=== PATIENT | female | born 1960 | race Caucasian/White ===

== ENCOUNTER 2021-10-04 20:00 | Outpatient (CLI) | payer BC, SELFPAY | END 2021-10-04 20:01 | disposition home or self-care (01) | LOC: SLEEP 10-05 16:03 | PROVIDERS: Family Provider Internal Medicine; Visit Provider Family Medicine | DX: G47.10 Hypersomnia, unspecified (principal) | CPT/HCPCS: G0399 ==

== ENCOUNTER 2022-03-08 10:58 | Outpatient (CLI) | payer BC, SELFPAY ==
[2022-03-08 11:05] VITALS: BMI 35.6
--- NOTE | 2022-03-08 11:24 | NMCV_ITS ---
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 Images obtained in supine and prone position. SPECT RESULTS Technical Quality: Excellent Raw Data Analysis: Normal Image Corrections: No attenuation or motion correction applied Summed Stress Score: 2 Summed Rest Score: 0 Summed Difference Score: 2 PERFUSION FINDINGS Small area of slightly decreased tracer uptake was noted in the basal and mid inferior wall region. Complete reversibility was noted at rest. FUNCTIONAL RESULTS (calculated via Gated SPECT) Stress Image LV EF (%): 80 Stress EDV (mL):88 TID: 1.02 Stress ESV (mL):18 FUNCTIONAL FINDINGS: Segmental wall motion analysis revealing no gross wall motion abnormalities IMPRESSIONS 1. Myocardial perfusion imaging revealing small area of reversible defect in the inferior wall region, suggesting ischemia in the distribution of the right coronary artery. 2. Normal LV ejection fraction of 80%. 3. Segmental wall motion analysis revealing no gross wall motion abnormalities. 4. Normal LV volume No similar previous studies are available for comparison Dr Nathan Gómez MD [facility] (Electronically Signed) Final Date: 08 March 2022 16:25 S
--- NOTE | 2022-03-08 11:24 | ECG_ITS ---
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 Interpretive Statements NAME OF STUDY: LEXISCAN SESTAMIBI STRESS TEST INDICATION: Dyspnea on Exertion, PROCEDURE: At the baseline, the EKG revealed sinus bradycardia with a rate of 57 bpm. Poor R wave progression. Some nonspecific ST changes in the high lateral leads. The baseline heart was 57 bpm with a blood pressue of 120/78 mm of Hg Lexiscan was infused over a period of 20 seconds. A total of 0.4 milligrams of Lexiscan was infused. The stress phase was continued for a total of 5 minutes. Heart rate at the end of the stress phase was 81 bpm with a blood pressure 149/84 mm of Hg. The EKG at the peak infusion revealed no significant changes. Sestamibi was injected 20 seconds after the Lexiscan infusion. Heart rate at the end of the recovery phase was 77 bpm with a blood pressure of 151/82 mm of Hg. CONCLUSION: 1. No significant EKG changes with the LexiScan infusion 2. No LexiScan induced chest pain or cardiac arrhythmia 3. Normal blood pressure and heart rate response 4. Sestamibi/sestamibi perfusion scan pending; see separate report. Electronically Signed On 03-08-2022 17:50:31 CDT by Nathan Gómez M.D. [id number]
[2022-03-08] MEDS: regadenoson 0.4 Mg/5 ml Syringe IVP (12:45)
[2022-03-08] MEDS: aminophylline 25 mg/mL SDV 10 mL IVP (13:05)
[2022-03-08 13:09] VITALS: BP 139/60; PULSE 61
== END 2022-03-08 10:59 | disposition home or self-care (01) ==
PROVIDERS: PCP Family Medicine; Visit Provider Family Medicine
DX: R07.89 Other chest pain (principal); R06.09 Other forms of dyspnea
CPT/HCPCS: 78452; 93017; A9500; J0280; J2785

== ENCOUNTER 2022-10-24 15:22 | Outpatient (RCR) | payer BC, SELFPAY | END 2022-11-05 23:59 | disposition home or self-care (01) | LOC: CR 15:22 | PROVIDERS: PCP Family Medicine; Referring Provider Internal Medicine; Visit Provider Internal Medicine | DX: Z95.5 Presence of coronary angioplasty implant and graft (principal) | CPT/HCPCS: 93798 ==

== ENCOUNTER 2023-06-30 10:32 | Emergency (ER) | payer BC, SELFPAY ==
[2023-06-30 10:43] VITALS: BP 146/85; PULSE 60; RESP 18; TEMP 36.6; O2SAT 98
[2023-06-30 10:48] VITALS: BP 146/85; PULSE 57; RESP 18; O2SAT 98
--- NOTE | 2023-06-30 10:49 | XRR_ITS ---
PROCEDURE INFORMATION: Exam: XR Chest Exam date and time: 06/30/2023 10:54 AM Age: 63 years old Clinical indication: Angina; Prior surgery; Surgery date: 6+ months; Surgery type: Stent; Additional info: Chest pain TECHNIQUE: Imaging protocol: Radiologic exam of the chest. Views: 1 view. COMPARISON: CR XR chest 2V* [id number] 02/15/2022 12:42 PM FINDINGS: Lungs: No consolidation. Pleural spaces: No pleural effusion. No pneumothorax. Heart/Mediastinum: No cardiomegaly. Bones/joints: No acute findings. XR/XR chest 1V portable [id number] IMPRESSION: No acute findings.
--- NOTE | 2023-06-30 10:49 | ECG_ITS ---
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 Measurements Intervals [place] Rate: 62 P: 18 AK: 189 QRS: -22 QRSD: 96 T: 18 QT: 442 QTc: 451 Interpretive Statements SINUS RHYTHM POSSIBLE ANTERIOR MYOCARDIAL INFARCTION , OF INDETERMINATE AGE [30 ms Q WAVE IN V3/V4, OR R < 0.2 mV IN V4] No previous ECG available for comparison Electronically Signed On 06-30-2023 10:59:31 SALESPERSON HOUSEHOLD APPLIANCES by Chris Fleming M.D. [email or web address]/store/[id number]
[2023-06-30 10:55] LABS: Basophils # 0.1 10^3/uL (0.0-0.1); Basophils % 1.4 %; Eosinophils # 0.4 10^3/uL (0.0-0.8); Hematocrit 38.2 % (36-47); Lymphocytes # 2.1 10^3/uL (0.8-4.8); Lymphocytes % 23.7 %; Mean Corpuscular Hemoglobin 27.4 pg (27-33); Mean Platelet Volume 8.7 fL (7.4-10.4); Monocytes # 0.5 10^3/uL (0.2-0.9); Neutrophils # 5.71 10^3/uL (1.8-7.7); Neutrophils % 64.6 %; Nucleated Red Blood Cells % 0 %; Platelet Count 398 10^3/cmm (157-399); Red Cell Distribution Width 14.6 % (12.1-15.1); White Blood Count 8.83 10^3/uL (3.29-11.43)
[2023-06-30 11:20] LABS: Alanine Aminotransferase 41 U/L (0-33); Albumin Level 4.8 g/dL (3.5-5.2); Alkaline Phosphatase 118 U/L (35-105); Anion Gap 12.3 (5-19); Aspartate Amino Transferase 24 U/L (0-32); Blood Urea Nitrogen 10 mg/dL (8-23); Calcium 10.1 mg/dL (8.5-10.5); Carbon Dioxide 29 mmol/L (22-29); Chloride 101 mmol/L (98-107); Globulin 2.4 g/dL (1.3-4.6); Glomerular Filtration Rate 72.4 mL/min (90-130); Glucose 100 mg/dL (65-115); Osmolality Calculated 285 mOsm/kg (285-295); Potassium 4.3 mmol/L (3.5-5.1); Sodium 138 mmol/L (136-145); Total Bilirubin 1.4 mg/dL (0.15-1.2); Total Protein 7.2 g/dL (6.6-8.7)
[2023-06-30 11:21] LABS: Troponin(5th) Baseline 15 ng/L (0-10)
--- NOTE | 2023-06-30 11:50 | W.ED.CHESTPA ---
HPI - Chest Pain General: Chief Complaint: Chest Pain Stated Complaint: chest pain Time Seen by Provider: 06/30/23 10:49 History of Present Illness: Patient presents to the ER with complaints of substernal chest pain with shortness of breath. Patient denies any radiation, nausea vomiting, diaphoresis. This happened throughout the middle the night. Patient took 2 nitro and the pain went away. Patient's blood pressure at home was 168/92. Patient does have a history of a stent approximately 1 year ago. Patient is in no acute distress at this time and, is pain-free, and is nontoxic in appearance. Review of Systems General: Reports: 10 or more systems reviewed and unremarkable except in HPI and below Physical Exam Const: COMMON NORMALS: no acute distress, average body habitus, patient oriented x3, no limitations, healthy appearing, alert and well nourished HENMT: COMMON NORMALS: normocephalic, atraumatic, hearing grossly normal bilaterally, external ears normal, Normal external nose present, moist oral mucous membranes and oropharynx normal HEAD & SCALP: normocephalic and atraumatic NOSE: Normal external nose present EXTERNAL EAR: Yes external ears normal Eye: COMMON NORMALS: Equal, round and reactive pupils present, EOMs intact bilaterally, conjunctivae normal and no scleral icterus CONJUNCTIVA: Yes conjunctivae normal PUPIL: Yes Equal, round and reactive pupils present Neck/C-Spine: COMMON NORMALS: full ROM, no lymphadenopathy, supple, no meningeal signs, no JVD and Thyroid normal THYROID: Thyroid normal Chest: COMMONS NORMALS: normal inspection of the chest and normal palpation of entire chest wall Resp: COMMON NORMALS: normal respiratory effort, No retractions, No use of accessory muscles and clear to auscultation bilaterally AUSCULTATION: clear to auscultation bilaterally Cardio: COMMON NORMALS: no JVD, regular rate, regular rhythm, S1 normal heart sound present, S2 normal heart sound present, No gallops present (Cardio), No clicks present (Cardio), No murmurs present (Cardio) and No rub (Cardio) RATE: regular rate RHYTHM: regular rhythm HEART SOUNDS: S1 normal heart sound present and S2 normal heart sound present GI: COMMON NORMALS: Normal to inspection, nondistended, normoactive bowel sounds present, Soft to palpation, non-tender, No hepatosplenomegaly present and no masses PALPATION: Yes Soft to palpation and Yes No hepatosplenomegaly present Neuro: COMMON NORMALS: patient oriented x3 SENSORIUM/ORIENTATION: Yes alert MENINGEAL SIGNS: Yes no meningeal signs Course Vital Signs: Vital signs: Vital Signs Temperature 98 F 06/30/23 10:43 Pulse Rate 59 L 06/30/23 12:00 Respiratory Rate 18 06/30/23 10:48 Blood Pressure 171/100 06/30/23 12:57 Pulse Oximetry 95 06/30/23 12:00 Oxygen Delivery Me thod Room Air 06/30/23 12:00 MDM - Chest Pain Medical Decision Making Patient presents to the ER with complaints of chest pain that has resolved by the time she came to the ER. Patient does have a history of having 1 stent in the past patient is currently on Plavix. Patient was worked up in a standard chest pain fashion with serial EKGs serial lab work and chest x-ray. All of which were essentially unremarkable. Is thought this is noncardiac chest pain patient will be discharged home to follow-up with her PCP in the next 7 days for further evaluation and treatment. Differential Diagnosis Unlikely acute massive pulmonary embolism, acute respiratory failure, acute myocardial infarction, cardiac arrest or sudden cardiac Medical Records I reviewed the patient's medical records. Lab Data I reviewed the patient's lab results. 06/30/23 10:48 06/30/23 10:48 Radiology Impressions Chest X-Ray 06/30/23 10:49 IMPRESSION: No acute findings. Laboratory Results WBC 8.83 10^3/uL (3.29-11.43) 06/30/23 10:48 RBC 4.60 10^6/uL (3.85-5.65) 06/30/23 10:48 Hgb 12.60 g/dL (11.27-16.99) 06/30/23 10:48 Hct 38.2 % (36-47) 06/30/23 10:48 MCV 83.0 fl (85-98) L 06/30/23 10:48 MCH 27.4 pg (27-33) 06/30/23 10:48 MCHC 33.0 g/dL (30-55) 06/30/23 10:48 RDW 14.6 % (12.1-15.1) 06/30/23 10:48 Plt Count 398 10^3/cmm (157-399) 06/30/23 10:48 MPV 8.7 fL (7.4-10.4) 06/30/23 10:48 Neut % (Auto) 64.6 % 06/30/23 10:48 Lymph % (Auto) 23.7 % 06/30/23 10:48 [place] % (Auto) 6.0 % 06/30/23 10:48 Eos % (Auto) 4.0 % 06/30/23 10:48 Baso % (Auto) 1.4 % 06/30/23 10:48 Neut # (Auto) 5.71 10^3/uL (1.8-7.7) 06/30/23 10:48 Lymph # (Auto) 2.1 10^3/uL (0.8-4.8) 06/30/23 10:48 [place] # (Auto) 0.5 10^3/uL (0.2-0.9) 06/30/23 10:48 Eos # (Auto) 0.4 10^3/uL (0.0-0.8) 06/30/23 10:48 Baso # (Auto) 0.1 10^3/uL (0.0-0.1) 06/30/23 10:48 Nucleated RBC % (auto) 0 % 06/30/23 10:48 Nucleated RBCs # 0.0 /100WBC 06/30/23 10:48 Sodium 138 mmol/L (136-145) 06/30/23 10:48 Potassium 4.3 mmol/L (3.5-5.1) 06/30/23 10:48 Chloride 101 mmol/L (98-107) 06/30/23 10:48 Carbon Dioxide 29 mmol/L (22-29) 06/30/23 10:48 Anion Gap 12.3 (5-19) 06/30/23 10:48 BUN 10 mg/dL (8-23) 06/30/23 10:48 Creatinine 0.8 mg/dL (0.5-0.9) 06/30/23 10:48 GFR Calculation 72.4 mL/min (90-130) L 06/30/23 10:48 Glucose 100 mg/dL (65-115) 06/30/23 10:48 Calculated Osmolality 285 mOsm/kg (285-295) 06/30/23 10:48 Calcium 10.1 mg/dL (8.5-10.5) 06/30/23 10:48 Total Bilirubin 1.4 mg/dL (0.15-1.2) H 06/30/23 10:48 AST 24 U/L (0-32) 06/30/23 10:48 ALT 41 U/L (0-33) H 06/30/23 10:48 Alkaline Phosphatase 118 U/L (35-105) H 06/30/23 10:48 Troponin T Baseline 15 ng/L (0-10) H 06/30/23 10:48 Troponin T 120 Minute 10.66 ng/L (0-10) H 06/30/23 12:41 Delta Troponin T -4.34 ABS# (0-10) L 06/30/23 12:41 Total Protein 7.2 g/dL (6.6-8.7) 06/30/23 10:48 Albumin 4.8 g/dL (3.5-5.2) 06/30/23 10:48 Globulin 2.4 g/dL (1.3-4.6) 06/30/23 10:48 All radiology interpretation(s) finalized by discharge EKG Data EKG 1: I personally reviewed and interpreted this EKG as follows: EKG interpretation date: 06/30/23 EKG interpretation time: 10:41 Prior EKG tracings: not available for review Interpretation: EKG shows ventricular rate 62 beats a minute, NH interval 189, QRS 96, QTc of 451, sinus rhythm, EKG 2: I personally reviewed and interpreted this EKG as follows: EKG interpretation date: 06/30/23 EKG interpretation time: 12:53 Prior EKG tracings: available for review Interpretation: EKG shows ventricular rate 56 bpm, NH interval 186, QRS duration 95, QTc of 432, sinus bradycardia Discharge Plan Discharge Patient Disposition: Home Clinical Impression: Atypical chest pain Condition: Stable Prescriptions: No Action atorvastatin 80 mg tablet 80 mg PO BEDTIME metoprolol succinate 50 mg tablet extended release 24 hr 50 mg PO DAILY fluoxetine 10 mg tablet 10 mg PO DAILY clopidogrel 75 mg tablet 75 mg PO DAILY isosorbide mononitrate 60 mg tablet extended release 24 hr 60 mg PO DAILY pantoprazole 40 mg tablet,delayed release (DR/EC) 40 mg PO DAILY irbesartan 150 mg tablet 150 mg PO DAILY duloxetine 30 mg capsule,delayed release(DR/EC) 30 mg PO DAILY Ozempic 0.25 mg or 0.5 mg (2 mg/3 mL) pen injector 0.5 mg SUBCUT Q7D Rx Instructions: ON SUNDAY Discharge Orders: Discharge ED (Routine); Ordered 06/30/23 Ordered By: Luis Wiggins Referrals: Kevin Rodriguez MD [Primary Care Provider] - 1 week Patient Instructions: Chest Pain - Noncardiac Activity Restrictions/Additional Instructions: Your EKGs and lab work in ER come back unremarkable. He is thought this is noncardiac chest pain. Please follow-up with your family practice physician in the next 7 days for further evaluation and testing as needed. Coding Level of Care Code ED Electronic Plotting System Operator for Gely Livingston
[2023-06-30 12:00] VITALS: BP 143/97; PULSE 59; O2SAT 95
--- NOTE | 2023-06-30 12:49 | ECG_ITS ---
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 Measurements Intervals [place] Rate: 56 P: 73 NC: 186 QRS: -27 QRSD: 95 T: 4 QT: 440 QTc: 427 Interpretive Statements SINUS BRADYCARDIA POSSIBLE ANTERIOR MYOCARDIAL INFARCTION , OF INDETERMINATE AGE [30 ms Q WAVE IN V3/V4, OR R < 0.2 mV IN V4] Compared to ECG 06/30/2023 10:41:33 Sinus rhythm no longer present Myocardial infarct finding still present Electronically Signed On 06-30-2023 13:17:56 DIRECTOR BIOSTATISTICS by Chris Fleming M.D. [id number]
[2023-06-30 12:57] VITALS: BP 171/100
[2023-06-30] MEDS: cloNIDine 0.1 mg Tablet PO (12:57)
[2023-06-30 13:29] LABS: Troponin 5 2HR 10.66 ng/L (0-10)
[2023-06-30 13:32] LABS: Troponin 5 2HR Delta -4.34 ABS# (0-10)
== END 2023-06-30 14:11 | disposition home or self-care (01) ==
PROVIDERS: Emergency Provider Emergency Medicine; PCP Family Medicine
DX: R07.89 Other chest pain (principal); Z79.02 Long term (current) use of antithrombotics/antiplatelets
CPT/HCPCS: 36415; 71045; 80053; 84484; 85025; 93005; 99285

== ENCOUNTER 2023-10-17 14:39 | Outpatient (CLI) | payer BC, SELFPAY ==
--- NOTE | 2023-10-17 14:42 | MM_ITS ---
WS: [id number] BILATERAL 3D TOMOSYNTHESIS DIGITAL SCREENING MAMMOGRAPHY WITH CAD CLINICAL INFORMATION: SCREEN HISTORY: Screening mammogram. No current complaints. COMPARISON: 2017 TECHNIQUE: Bilateral CC and MLO views. FINDINGS: The breasts are composed of heterogeneous fibroglandular density tissue, which can limit the detectio n of small underlying mass lesions. No suspicious mass, asymmetry, calcifications, or architectural d istortion. No evidence of malignancy. A few incidental punctate calcifications. IMPRESSION: MM/[place] [id number] BI-RADS: 2-Benign FOLLOW UP: 1 Year Follow-up Recommend return to annual screening mammography.
== END 2023-10-17 14:40 | disposition home or self-care (01) ==
LOC: RAD 14:39
PROVIDERS: PCP Family Medicine; Visit Provider Family Medicine
DX: Z12.31 Encounter for screening mammogram for malignant neoplasm of breast (principal)
CPT/HCPCS: 77063; 77067

== ENCOUNTER 2024-07-10 14:36 | Outpatient (CLI) | payer BC, SELFPAY | END 2024-07-10 14:37 | disposition home or self-care (01) | LOC: SLEEP 14:38 | PROVIDERS: PCP Family Medicine; Visit Provider Family Medicine | DX: R09.02 Hypoxemia (principal) | CPT/HCPCS: 94762 ==

== ENCOUNTER 2024-07-29 08:05 | Outpatient (CLI) | payer BC, SELFPAY | END 2024-07-29 08:06 | disposition home or self-care (01) | LOC: RT 08:06 | PROVIDERS: PCP Family Medicine; Visit Provider Family Medicine | DX: R06.09 Other forms of dyspnea (principal) | CPT/HCPCS: 94010; 94618; 94726; 94729 ==